=== PATIENT | female | born 1995 | race Caucasian/White ===

== ENCOUNTER 2018-08-03 00:16 | Emergency (ER) | payer OTHER ==
[~2018-08-03] VITALS: Ht 160 cm; Wt 72.6 kg
[~2018-08-03 00:16] MED LIST: BACTRIM DS TAB1 EACH PO; DOXYCYCLINE HY100 MG PO; FLAGYL500 MG PO; NAPROXEN500 MG PO; TRAMADOL HCL50 MG PO
[2018-08-03] MEDS ORDERED: NORCO 5-325 TA1 EACH PO (01:12)
== END 2018-08-03 01:37 | disposition home or self-care (01) ==
LOC: ED 00:16
DX: S05.01XA Injury of conjunctiva and corneal abrasion without foreign body, right eye, initial encounter (principal); F17.200 Nicotine dependence, unspecified, uncomplicated; W50.4XXA Accidental scratch by another person, initial encounter
CPT/HCPCS: 99283

== ENCOUNTER 2019-05-01 01:30 | Inpatient (IN) | payer OTHER ==
[~2019-05-01] VITALS: Ht 160 cm; Wt 104.0 kg
[~2019-05-01 01:30] MED LIST changes: +NORCO 5-325 TA1 EACH PO
--- NOTE | 2019-05-01 05:30 | PR ---
[facility] [address] [facility] [place], [place] [address] Signed Progress Notes IP Datetime Report Generated by CPN: 05/01/2019 05:30 PROGRESS NOTES: [id number] Impression: Normal progression of labor; Reassuring heart rate Plan: Continue present management; Anticipate Vaginal Delivery VITAL SIGNS: [id number] Vital Signs: Reviewed VS Notable Details: systolic 140s EXAM: [id number] Dilatation: 9.0 Effacement: 100 Station: -1 MEMBRANES: [id number] Comments: Reviewed labor progress. Pt now 9cm. Comfortable w/ epidural. Requesting to rest. Consider AROM in the near future and anticipate . Fetus A: [id number] FHR Baseline: 130 Variability: Moderate 6-25bpm Accelerations: None Decelerations: None FHR Category: Category I Presentation: Vertex Comments on Fetus A: No evidence of metabolic acidosis Fetus B: [id number] Signing Physician: Dejuan Lynch DO Copies: ~ *Electronically Signed* 05/01/19 0530 DEJUAN LYNCH DO PATIENT NAME: ESTESDELDAYLIN ALY PROGRESS NOTE DATE OF : [birth year] PHYSICIAN: DEJUAN LYNCH DO RPT #: [id number] REPORT IS CONFIDENTIAL AND NOT TO BE RELEASED WITHOUT AUTHORIZATION
--- NOTE | 2019-05-01 06:12 | PR ---
[facility] [address] [place], [place] [address] Signed Progress Notes IP Datetime Report Generated by CPN: 05/01/2019 06:12 PROGRESS NOTES: [id number] Impression: Normal progression of labor; Reassuring heart rate Procedures: Artificial ROM; Sterile Vag Exam Plan: Continue present management; Anticipate Vaginal Delivery Informed Consent Obtain: Vaginal Delivery Other Informed Consents: AROM VITAL SIGNS: [id number] Vital Signs: Reviewed; Within Normal Limits VS Notable Details: systolic 140s EXAM: [id number] Dilatation: 9.0 Effacement: 100 Station: 0 Uterine Contractions: q 2-4 minutes MEMBRANES: [id number] Amniotic Fluid Color: Clear ROM Note: After verbal consent obtained and head checked to be well applied, AROM of bulging membranes was performed without difficulty. Moderate amount clear fluid noted. Mother and baby tolerated well Comments: Pt seen and examined. Comfortable w/ epidural. AROM easily performed. FHT reassuring. Anticipate soon Fetus A: [id number] FHR Baseline: 130 Variability: Moderate 6-25bpm Accelerations: None Decelerations: None FHR Category: Category I Presentation: Vertex Comments on Fetus A: No evidence of metabolic acidosis Fetus B: [id number] Signing Physician: Dejuan Lynch DO Copies: ~ *Electronically Signed* 05/01/19 0612 DEJUAN LYNCH DO PATIENT NAME: DEL ESTES PROGRESS NOTE DATE OF : [birth year] PHYSICIAN: DEJUAN LYNCH DO RPT #: [id number] REPORT IS CONFIDENTIAL AND NOT TO BE RELEASED WITHOUT AUTHORIZATION
--- NOTE | 2019-05-01 07:36 | PR ---
[facility] [address] [place], [place] [address] Signed Progress Notes IP Datetime Report Generated by CPTd: 05/01/2019 07:36 PROGRESS NOTES: [id number] Impression: Normal progression of labor; Reassuring heart rate Procedures: Sterile Vag Exam Plan: Anticipate Vaginal Delivery Informed Consent Obtain: Vaginal Delivery Other Informed Consents: AROM VITAL SIGNS: [id number] Vital Signs: Reviewed; Within Normal Limits VS Notable Details: systolic 140s EXAM: [id number] Dilatation: 10.0 Effacement: 100 Station: 1 Uterine Contractions: q 2-3 minutes MEMBRANES: [id number] Amniotic Fluid Color: Clear ROM Note: After verbal consent obtained and head checked to be well applied, AROM of bulging membranes was performed without difficulty. Moderate amount clear fluid noted. Mother and baby tolerated well Comments: Pt seen and examined. Comfortable. Complete and low station. FHT reassuring. Will start pushing. Anticipate soon Fetus A: [id number] FHR Baseline: 140 Variability: Moderate 6-25bpm Accelerations: None Decelerations: Variable FHR Category: Category II Presentation: Vertex Comments on Fetus A: No evidence of metabolic acidosis Fetus B: [id number] Signing Physician: Dejuan Lynch DO Copies: ~ *Electronically Signed* 05/01/19 0736 DEJUAN LYNCH DO PATIENT NAME: DEL ESTES PROGRESS NOTE DATE OF : [birth year] PHYSICIAN: DEJUAN LYNCH DO RPT #: [id number] REPORT IS CONFIDENTIAL AND NOT TO BE RELEASED WITHOUT AUTHORIZATION
--- NOTE | 2019-05-01 19:42 | PR ---
[facility] [address] [facility] [place], [place] [address] Signed PP Progress Notes Datetime Report Generated by CPN: 05/01/2019 19:42 SUBJECTIVE: [id number] Pain: Within normal limits Pain Comments: Passed tissue Nausea/Vomiting: Denies Flatus: Yes Vital Signs: [id number] Vital Signs: Reviewed Notable Details: few elevated BPs (non-severe) EXAM: [id number] Cardiovascular: Normal Respiratory: Normal Abdomen/Uterus: Normal Lochia: Normal Vulva/Perineum: Not Done Breasts: Not Done CVA Tenderness: Normal Extremities: Normal Exam Comments: Fundus firm U-1 nontender IMPRESSION/PLAN/PROCEDURES: [id number] Impression: Normal progression Other Impression: Retained POC- passed Progress Notes: Called to pt room. Pt up to restroom and felt tissue coming thru vagina. On exam, pt had passed moderate amount of membranes. Uterus firm, bleeding scant, no fever. At delivery, it was felt all placental tissue/membranes were delivered. No record of succenturiate lobe or other placental abnormality. Will continue to watch, and consider US for additional RPOC if symptmos suggest Signing Physician: Dejuan Lynch DO Copies: ~ *Electronically Signed* 05/01/191941 DEJUAN LYNCH DO PATIENT NAME: DEL ESTES PROGRESS NOTE DATE OF : [birth year] PHYSICIAN: DEJUAN LYNCH DO RPT #: [id number] REPORT IS CONFIDENTIAL AND NOT TO BE RELEASED WITHOUT AUTHORIZATION
--- NOTE | 2019-05-02 12:29 | PR ---
[facility] [address] [facility] [place], [place] [address] Signed PP Progress Notes Datetime Report Generated by CPN: 05/02/2019 12:29 SUBJECTIVE: [id number] Pain: Within normal limits Pain Comments: Passed tissue Nausea/Vomiting: Denies Flatus: Yes Vital Signs: [id number] Vital Signs: Reviewed; Within Normal Limits Notable Details: few elevated BPs (non-severe) EXAM: [id number] Cardiovascular: Normal Respiratory: Normal Abdomen/Uterus: Normal Lochia: Normal Vulva/Perineum: Not Done Breasts: Not Done CVA Tenderness: Normal Extremities: Normal Exam Comments: Fundus firm U-1 nontender IMPRESSION/PLAN/PROCEDURES: [id number] Impression: Normal progression Other Impression: Retained POC- passed Plan: Continue present management Procedures: None Progress Notes: Doing well, without complaint. Signing Physician: Judy Cr MD Copies: ~ *Electronically Signed* 05/02/19 1229 JUDY CR MD PATIENT NAME: DEL ESTES PROGRESS NOTE DATE OF : 93 PHYSICIAN: JUDY CR MD RPT #: [id number] REPORT IS CONFIDENTIAL AND NOT TO BE RELEASED WITHOUT AUTHORIZATION
--- NOTE | 2019-05-03 12:24 | PR ---
[facility] [address] [facility] [place], [place] [address] Signed PP Progress Notes Datetime Report Generated by CPN: 05/03/2019 12:24 SUBJECTIVE: [id number] Pain: Within normal limits Pain Comments: Passed tissue Nausea/Vomiting: Denies Flatus: Yes Vital Signs: [id number] Vital Signs: Reviewed; Within Normal Limits Notable Details: few elevated BPs (non-severe) EXAM: [id number] Cardiovascular: Normal Respiratory: Normal Abdomen/Uterus: Normal Lochia: Normal Vulva/Perineum: Not Done Breasts: Not Done CVA Tenderness: Normal Extremities: Normal Exam Comments: Fundus firm U-1 nontender IMPRESSION/PLAN/PROCEDURES: [id number] Impression: Normal progression Other Impression: Retained POC- passed Plan: Discharge Procedures: None Progress Notes: Doing well, without complaint. Would like to go home Signing Physician: Judy Cr MD Copies: ~ *Electronically Signed* 05/03/19 1224 JUDY CR MD PATIENT NAME: DEL ESTES PROGRESS NOTE DATE OF : 93 PHYSICIAN: JUDY CR MD RPT #: [id number] REPORT IS CONFIDENTIAL AND NOT TO BE RELEASED WITHOUT AUTHORIZATION
== END 2019-05-03 12:45 | disposition home or self-care (01) | DRG 806 ==
LOC: FBCO 01:30 → FBC 01:50
PROVIDERS: ADMIT Obstetrics & Gynecology
PROC: 10E0XZZ Delivery of Products of Conception, External Approach (ICD-10-PCS; principal; 2019-05-01)
PROC: 10907ZC Drainage of Amniotic Fluid, Therapeutic from Products of Conception, Via Natural or Artificial Opening (ICD-10-PCS; 2019-05-01)
PROC: 00HU33Z Insertion of Infusion Device into Spinal Canal, Percutaneous Approach (ICD-10-PCS; 2019-05-01)
PROC: 3E0R3BZ Introduction of Anesthetic Agent into Spinal Canal, Percutaneous Approach (ICD-10-PCS; 2019-05-01)
DX: O76 Abnormality in fetal heart rate and rhythm complicating labor and delivery (principal); O99.324 Drug use complicating childbirth; Z37.0 Single live birth; O99.02 Anemia complicating childbirth; D64.9 Anemia, unspecified; O73.1 Retained portions of placenta and membranes, without hemorrhage; O99.334 Smoking (tobacco) complicating childbirth; F17.210 Nicotine dependence, cigarettes, uncomplicated; Z3A.39 39 weeks gestation of pregnancy; F12.90 Cannabis use, unspecified, uncomplicated
CPT/HCPCS: 01960; 36415; 85027; J2590; J2795; J7120

== ENCOUNTER 2020-04-16 10:19 | Emergency (ER) | payer OTHER ==
[~2020-04-16] VITALS: Ht 160 cm; Wt 72.6 kg
[2020-04-16] MEDS ORDERED: KEFLEX500 MG PO (14:17)
[2020-04-16] MEDS ORDERED: ONDANSETRON ODT4 MG SL (14:17)
[2020-04-16] MEDS ORDERED: MORPHINE SULFAT15 MG PO (14:17)
== END 2020-04-16 14:48 | disposition home or self-care (01) ==
LOC: ED 10:19
DX: N10 Acute pyelonephritis (principal); F17.200 Nicotine dependence, unspecified, uncomplicated
CPT/HCPCS: 74177; 80053; 81001; 83605; 83690; 84703; 85025; 99284-25; J0696; J1170; J1885; J2405; Q9967

== ENCOUNTER 2024-07-23 20:16 | Emergency (ER) | payer OTHER ==
[~2024-07-23] VITALS: Ht 160 cm; Wt 88.0 kg
[~2024-07-23 20:16] MED LIST changes: +KEFLEX500 MG PO; +MORPHINE SULFAT15 MG PO; +ONDANSETRON ODT4 MG SL
[2024-07-23] MEDS ORDERED: HYDROCHLOROTHIA25 MG (20:31)
[2024-07-23] MEDS ORDERED: POTASSIUM CHLO10 ME2 (20:32)
[2024-07-23 22:26] LABS: BASOPHILS 2.7 % (0-2); EOSINOPHILS 2.4 % (0-6); HEMATOCRIT 49.3 % (35.0-50.0); HEMOGLOBIN 16.5 g/dL (12.0-18.0); LYMPHOCYTES 14.5 % (24-44); MCH 32.7 (27-36); MCHC 33.3 g/dl (30-36); MONOCYTES 9.5 % (0-12); NEUTROPHILS 70.9 % (39-80); PLATELET COUNT 203 K/uL (140-440); RBC 5.03 M/ul (4.3-5.7); RDW 12.9 (10.5-15.0)
[2024-07-23 22:46] LABS: ALBUMIN 3.4 g/dL (3.4-5.0); ALBUMIN/GLOBULIN RATIO 0.85 (1.1-2.4); BILIRUBIN, TOTAL 0.6 ng/dL (0.2-1.0); BUN/CREATININE RATIO 17.8 (6.0-28.6); CALCIUM 9.2 mg/dL (8.5-10.1); CREATININE, SERUM 1.46 mg/dL (0.55-1.02); PROTEIN, TOTAL 7.4 g/dL (6.4-8.2)
[2024-07-23 23:10] LABS: AMPHETAMINES, URINE POSITIVE (NEGATIVE); BARBITURATES, URINE NEGATIVE (NEGATIVE); BENZODIAZEPINE, URINE NEGATIVE (NEGATIVE); BUPRENORPHINE, URINE NEGATIVE (NEGATIVE); CANNABINOID, URINE POSITIVE (NEGATIVE); COCAINE, URINE NEGATIVE (NEGATIVE); ECSTASY, URINE POSITIVE (NEGATIVE); FENTANYL, URINE NEGATIVE (NEGATIVE); METHADONE, URINE NEGATIVE (NEGATIVE); OPIATES, URINE NEGATIVE (NEGATIVE); OXYCODONE, URINE NEGATIVE (NEGATIVE); PHENCYCLIDINE, URINE NEGATIVE (NEGATIVE)
[2024-07-23 23:25] LABS: BILIRUBIN, URINE NEGATIVE (negative); BLOOD/HGB, URINE SMALL (Negative); KETONE, URINE NEGATIVE (Negative); LEUK ESTERASE, URINE NEGATIVE (negative); NITRITE, URINE NEGATIVE (negative)
[2024-07-23 23:29] LABS: BACTERIA, URINE 1+ /hpf (negative); CRYSTALS, URINE NONE SEEN (0-1+); EPITHELIAL CELLS, URINE SQUAMOUS 2+ /lpf (0-1+)
[2024-07-23 23:30] LABS: CASTS, URINE HYALINE 1+ \\lpf
[2024-07-23 23:32] LABS: COLLECTION TYPE, URINE CLEAN CATCH; REFLEX CULTURE, URINE No (No)
[2024-07-24 00:02] VITALS: BP 159/127
--- NOTE | 2024-07-25 19:24 | EKG ---
[facility] [address] [facility] [place] [address] Signed Normal sinus rhythm Rightward axis RSR' or QR pattern in V1 suggests right ventricular conduction delay Borderline ECG No previous ECGs available Confirmed by Margi Roper MD ([id number]) on 07/25/2024 7:24:35 PM Electronically Signed By: MARGI ROPER MD 07/25/24 1924 PATIENT NAME: ESTESDEL Electrocardiogram DATE OF : [birth year] PHYSICIAN: MARGI ROPER MD REPORT #: [id number] REPORT IS CONFIDENTIAL AND NOT TO BE RELEASED WITHOUT AUTHORIZATION
== END 2024-07-24 00:02 | disposition home or self-care (01) ==
LOC: ED 20:16
PROVIDERS: Emergency Medicine
DX: I11.0 Hypertensive heart disease with heart failure (principal); I50.9 Heart failure, unspecified; F15.10 Other stimulant abuse, uncomplicated; F17.200 Nicotine dependence, unspecified, uncomplicated; Z88.8 Allergy status to other drugs, medicaments and biological substances; Z88.5 Allergy status to narcotic agent; Z79.899 Other long term (current) drug therapy
CPT/HCPCS: 36415; 71045; 80053; 80307; 81001; 83880; 85025; 93005; 93010; 99285-25